=== PATIENT | female | born 1985 | race Caucasian/White ===

== ENCOUNTER 2016-10-27 11:53 | Emergency (ER) | payer OTHER ==
[~2016-10-27] VITALS: Ht 170.2 cm; Wt 109.0 kg
[~2016-10-27 11:53] MED LIST: ASPIRIN81 M2 PO; Motrin PO; Natalcare Rx,Pramile PO; PRENATAL TABLE1 EAC3 PO; PROMETRIUM100 MG; ZANTAC150 MG PO
[2016-10-27] MEDS ORDERED: SERTRALINE HCL50 MG PO (13:10)
[2016-10-27 13:28] LABS: HEMATOCRIT 37.2 % (36.0-46.0); MCH 26.9 PG (29.0-34.0); MCHC 33.6 G/DL (30.0-36.0); MCV 80.2 FL (83-99); PLATELET COUNT 323 K/uL (156-360); RBC DIS.WIDTH-CV 13.2 % (11.8-14.6); RBC DIS.WIDTH-SD 37.2 % (39-53); RED BLOOD COUNT 4.64 M/uL (3.80-5.20); WHITE BLOOD COUNT 11.2 K/uL (4.1-10.2)
[2016-10-27 13:40] LABS: CHLORIDE 106 mEq/L (99-109); POTASSIUM 4.1 mEq/L (3.7-5.4); SODIUM 140 mEq/L (136-147)
[2016-10-27 13:42] LABS: GLUCOSE 85 mg/dL (70-99)
[2016-10-27 13:44] LABS: ANION GAP 9 MEQ/L (2-14); TOTAL BILIRUBIN 0.3 mg/dL (0.0-1.0)
[2016-10-27 13:46] LABS: ALKALINE PHOSPHATASE 78 IU/L (3-129); GFR ESTIMATE (CALCULATED) > 59 mL/min/
[2016-10-27 13:47] LABS: UREA NITROGEN (BUN) 12 mg/dL (9-23)
[2016-10-27 14:52] LABS: ADD MIUA? YES; BILIRUBIN NEGATIVE; BLOOD MODERATE; COLOR STRAW ((YELLOW)); GLUCOSE (STRIP) NEGATIVE; KETONES NEGATIVE; LEUKOCYTES SMALL; NITRITE NEGATIVE; PROTEIN (STRIP) NEGATIVE; UROBILINOGEN 0.2 MG/DL (0.2-1.0)
[2016-10-27 15:03] LABS: BACTERIA RARE /HPF; EPITHELIAL CELLS RARE /HPF; MUCUS TRACE /LPF; RED BLOOD CELLS 0-5 /HPF (0-5); UCUL ADDED? NO
[2016-10-27] MEDS ORDERED: OMEPRAZOLE20 MG PO (15:22)
[2016-10-27] MEDS ORDERED: MACROBID100 MG PO (15:35)
[2016-10-27 15:59] VITALS: BP 126/82
[2016-10-27 16:06] LABS: QUANTITATIVE HCG < 4.0 MIU/ML
== END 2016-10-27 16:01 | disposition home or self-care (01) ==
LOC: EME 11:53
PROVIDERS: Nurse Practitioner Family
DX: N39.0 Urinary tract infection, site not specified (principal); K21.9 Gastro-esophageal reflux disease without esophagitis; D68.2 Hereditary deficiency of other clotting factors
CPT/HCPCS: 74020; 80053; 81003; 84702; 85027; 93005; 99281; 99284